=== PATIENT | female | born 1950 | race Caucasian/White ===

== ENCOUNTER 2022-09-22 11:04 | Outpatient (OUT) | payer MEDICARE, SELFPAY ==
[2022-09-25 14:37] LABS: Methylmalonic Acid, Serum 248 nmol/L (0-378)
== END 2022-09-22 11:05 ==
PROVIDERS: PCP Family Medicine; Visit Provider Psychiatry & Neurology Neurology
DX: R41.3 Other amnesia (principal)
CPT/HCPCS: 36415; 82607; 82746; 83921

== ENCOUNTER 2022-11-28 00:32 | Observation (INO) | payer MEDICARE, SELFPAY ==
[2022-11-28] VITALS (30 sets, daily range): BP systolic 130–174; BP diastolic 60–126; PULSE 64–96; RESP 9–28; TEMP 36.4–36.8; O2SAT 82–100; BMI 27.5; BMI 29.9
[2022-11-28 00:36] LABS: Glucometer 114 mg/dL (74-106)
--- NOTE | 2022-11-28 00:40 | CT_ITS ---
The [address] [address] Patient Name: YUDY MACARIO MRN: [id number] date: 1950 Sex: F Assigned Patient Location: ER Current Patient Location: ER Accession/Order Number: [id number] Exam Date: 11/28/2022 00:40 Report Date: 11/28/2022 00:59 At the request of: ELI STUART Procedure: CT stroke head/brain wo con NONCONTRAST CT SCAN OF THE HEAD HISTORY: Headache. TECHNIQUE: Multiple axial images are taken from the level the vertex down to the base of the skull without the use of IV contrast. Images were then reconstructed in the sagittal and coronal planes. This exam was performed according to our departmental dose-optimization program which includes use of Automated Exposure Control, adjustment of the mA and/or kV according to patient size and/or use of iterative reconstruction technique. COMPARISON: None. FINDINGS: Brain Parenchyma: There is global, diffuse atrophy with periventricular decreased white matter attenuation. No intracranial mass. No intracranial hemorrhage. Posterior fossa: Normal. Midline shift: None Extra-axial fluid collection: None Ventricles: Normal. Mastoid air cells: Normal. Sinuses: Normal. Cranium: No depressed skull fracture. Soft tissues: Normal. Orbits: Orbits demonstrate postoperative changes from prior cataract resection with prosthetic lens implant. CT/CT stroke head/brain wo con IMPRESSION: 1. Chronic small vessel ischemic change. 2. Otherwise, no CT evidence for acute pathology. 3. If patient continues to have symptoms or if there remains any further clinical concern, MRI may help better delineate. Electronically authenticated by: JAMIA MAE Date: 11/28/2022 00:59
--- NOTE | 2022-11-28 00:53 | ED_ITS ---
HPI - Head Injury General Chief complaint: Altered Mental Status Stated complaint: CONFUSION Time Seen by Provider: 11/28/22 00:37 History of Present Illness HPI Narrative: patient lives alone. 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 Fell yesterday afternoon. Was seen by Squad and cleared. Seen around 8pm by her son who thought she was doing ok. Recent workup by the memory doctor with concern for dementia. Son states she does struggle to walk because of her Polio. She was not able to get up to go to the bathroom tonight due to right foot and ankle pain. He was also concerned that she was more confused now at the later hour than when he seen her at 8pm and decided to have her brought in. She does have nausea. MD Complaint: Reports head injury Related Data Home Medications Medication Instructions Recorded Confirmed tramadol 50 mg tablet 50 mg PO DAILY 11/28/22 11/28/22 Allergies Allergy/AdvReac Type Severity Reaction Status Date / Time aspirin Allergy Severe Verified 11/28/22 01:11 butalbital [From Fiorinal] Allergy Mild Verified 11/28/22 01:11 caffeine [From Fiorinal] Allergy Mild Verified 11/28/22 01:11 chlorzoxazone Allergy Mild Verified 11/28/22 01:11 [From Parafon Forte] codeine Allergy Mild Verified 11/28/22 01:11 gabapentin [From Neurontin] Allergy Mild Verified 11/28/22 01:11 lisinopril Allergy Mild Verified 11/28/22 01:11 meperidine [From Demerol] Allergy Mild Verified 11/28/22 01:11 metoclopramide [From Reglan] Allergy Mild Verified 11/28/22 01:11 morphine Allergy Mild Hives Verified 11/28/22 01:11 moxifloxacin [From Avelox] Allergy Mild Verified 11/28/22 01:11 nalbuphine [From Nubain] Allergy Mild Verified 11/28/22 01:11 Penicillins Allergy Mild Verified 11/28/22 01:11 promethazine [From Phenergan] Allergy Mild Verified 11/28/22 01:11 salsalate [From Disalcid] Allergy Mild Verified 11/28/22 01:11 tapentadol [From Nucynta] Allergy Mild Verified 11/28/22 01:11 percadan Allergy Mild Uncoded 11/28/22 01:11 percocet Allergy Mild Uncoded 11/28/22 01:11 Review of Systems ROS Status of ROS unobtainable due to mental status Exam Constitutional Vital Signs, click to edit/add: Last Vital Signs Temp 98 F 11/28/22 01:00 Pulse 76 11/28/22 03:00 Resp 13 11/28/22 03:00 BP 147/75 H 11/28/22 02:30 Pulse Ox 93 L 11/28/22 03:00 O2 Del Method Room Air 11/28/22 01:00 Common normals: no apparent distress, average body habitus and alert HENMT Other: tenderness of occipital scalp but no obvious swelling Eye Common normals: EOMs intact bilaterally and conjunctivae normal Respiratory Common normals: normal respiratory effort, no retractions, no use of accessory muscles and clear to auscultation bilaterally Cardio Common normals: regular rate, regular rhythm, S1 normal heart sound and S2 normal heart sound GI Common normals: Normal to inspection, nondistended, normoactive bowel sounds present, soft to palpation and non-tender Extremity Other: edema bilat lower extremities increased swelling and tenderness of the right ankle Neuro Common normals: moves all extremities and no focal motor deficits Other: alert to person and place Psych Appearance: grossly normal Course Vital Signs Vital signs: Vital Signs Blood Pressure 174/126 H 11/28/22 00:33 Temperature 98 F 11/28/22 01:00 Pulse Rate 76 11/28/22 03:00 Respiratory Rate 13 11/28/22 03:00 Blood Pressure 147/75 H 11/28/22 02:30 Pulse Oximetry 93 L 11/28/22 03:00 Oxygen Delivery Method Room Air 11/28/22 01:00 MDM - Head Injury MDM Narrative Medical decision making narrative: patient fell yesterday striking her head. seen by Squad and released to stay home. Brought in tonight as her son felt she was confused and she was not able to walk due to ankle pain. Patient is awake and alert. She does have right ankle sweling and bilat chronic lower ext. edema. workup remarkable for no acute CT brain findings. ankle without fracture but does have swelling and clinically ankle sprain. UA is positive. Discussed with her son and he does not feel she can go home as she lives alone and he lives 1/2 hour away. Hospitalist paged for observation admission for UTI and ankle sprain-R Lab Data Labs: Lab Results 11/28/22 11/28/22 11/28/22 Range/Units 00:35 01:05 02:05 WBC 9.7 (4.0-11.0) 10^3/uL RBC 4.56 (4.20-5.40) 10^6/uL Hgb 13.8 (12.0-16.0) g/dL Hct 41.2 (36.0-48.0) % MCV 90.4 (81.0-99.0) fL MCH 30.3 (26.7-34.0) pg MCHC 33.5 (29.9-35.2) g/dL RDW 13.7 (11.0-15.0) % Plt Count 193 (150-450) 10^3/uL MPV 10.3 (9.5-13.5) fL Neut % (Auto) 77.4 H (43.0-75.0) % Lymph % (Auto) 14.2 L (20.5-60.0) % [place] % (Auto) 7.7 (1.7-12.0) % Eos % (Auto) 0.3 L (0.9-7.0) % Baso % (Auto) 0.2 (0.2-2.0) % Neut # (Auto) 7.5 H (1.4-6.5) 10^3/uL Lymph # (Auto) 1.4 (1.2-3.8) 10^3/uL [place] # (Auto) 0.8 (0.3-0.8) 10^3/uL Eos # (Auto) 0.0 (0.0-0.7) 10^3/uL Baso # (Auto) 0.0 (0.0-0.1) 10^3/uL Abs Immat Gran (auto) 0.02 (0.00-0.03) 10^3/uL Imm/Tot Granulo (auto) 0.2 (0.0-0.5) % Sodium 138 (136-145) mmol/L Potassium 3.7 (3.5-5.1) mmol/L Chloride 105 (98-107) mmol/L Carbon Dioxide 23.7 (21.0-32.0) mmol/L Anion Gap 13.0 BUN 27.0 H (7.0-18.0) mg/dL Creatinine 0.76 (0.55-1.02) mg/dL Est GFR ( Amer) >60 (>=60) Est GFR (Non-Af Amer) >60 (>=60) BUN/Creatinine Ratio 35.5 Glucose 119 H (74-106) mg/dL Calcium 9.1 (8.5-10.1) mg/dL Troponin I High Sens 8.0 (4.0-51.3) pg/mL Urine Color Yellow (YELLOW) Urine Clarity Clear (CLEAR) Urine pH 5.5 (5.0-9.0) Ur Specific [place] >=1.030 A (1.005-1.025) Urine Protein Trace (NEG/TRACE) mg/dL Urine Glucose (UA) Negative (NEGATIVE) mg/dL Urine Ketones 15 A (NEGATIVE) mg/dL Urine Occult Blood Small A (NEGATIVE) Urine Nitrite Positive A (NEGATIVE) Urine Bilirubin Negative (NEGATIVE) Urine Urobilinogen 0.2 (0.2-1.0) EU/dL Ur Leukocyte Esterase Small A (NEGATIVE) Urine RBC 2-5 A (0-2) #/HPF Urine WBC 10-20 A (NONE SEEN) #/HPF Ur Squamous Epith Cells Few A (NONE/RARE) #/LPF Urine Crystals None seen (None Seen) #/HPF Urine Bacteria Large A (NONE SEEN) #/HPF Urine Casts None seen (NONE SEEN) #/LPF Urine Mucus Moderate A (NONE SEEN) Ur Culture Indicated? Yes POC Glucose 114 H (74-106) mg/dL Discharge Plan Discharge Chief Complaint: Altered Mental Status Clinical Impression: Minor head injury, Acute UTI, Right ankle sprain Patient Disposition: Admitted as Observation
--- NOTE | 2022-11-28 00:59 | XR_ITS ---
The [address] [address] Patient Name: YUDY MACARIO MRN: [id number] date: 1950 Sex: F Assigned Patient Location: ED.MAIN Current Patient Location: ED.MAIN Accession/Order Number: [id number] Exam Date: 11/28/2022 00:25 Report Date: 11/28/2022 01:58 At the request of: ELI STUART Procedure: XR ankle RT min 3V XR ankle RT min 3V: HISTORY: injury injury COMPARISON: None available. TECHNIQUE: 3 right ankle views are submitted. FINDINGS: BONES/JOINT SPACES: The bones are severely osteopenic. Chronic deformity is present of in the talus secondary to degenerative changes. No definitive acute fracture is appreciated in the right ankle. SOFT TISSUES: There is severe diffuse soft tissue swelling. There are vascular calcifications noted along with phleboliths. XR/XR ankle RT min 3V IMPRESSION: Diffuse soft tissue swelling without a definitive acute fracture. Electronically authenticated by: RICHARD POWELL Date: 11/28/2022 01:58
--- NOTE | 2022-11-28 00:59 | XR_ITS ---
The [address] [address] Patient Name: YUDY MACARIO MRN: [id number] date: 1950 Sex: F Assigned Patient Location: ED.MAIN Current Patient Location: ER Accession/Order Number: [id number] Exam Date: 11/28/2022 00:25 Report Date: 11/28/2022 01:59 At the request of: ELI STUART Procedure: XR chest 1V EXAMINATION:XR chest 1V INDICATION:fall COMPARISON:06/18/2018 TECHNIQUE:A single frontal view of the chest is submitted. FINDINGS: The cardiomediastinal silhouette is not enlarged. The pulmonary vascularity is within normal limits. The lungs are clear based on chest radiography. There is no costophrenic angle blunting. XR/XR chest 1V IMPRESSION: Unremarkable plain film examination of the chest. Electronically authenticated by: RICHARD POWELL Date: 11/28/2022 01:59
--- NOTE | 2022-11-28 00:59 | ECG_ITS ---
The [facility] Test Date: 2022-11-28 Pat Name: YUDY MACARIO Department: Room: - Gender: Female Medical Health Researcher: : 1950 Requested By: [id number] Order Number: [id number] Reading MD: MAMIE PHELAN Measurements Intervals [place] Rate: 63 P: -[id number] NE: 68 QRS: -80 QRSD: 114 T: 53 QT: 424 QTc: 431 Interpretive Statements Baseline artifact 2630 Left anterior fascicular block 0102 ARTIFACT PRESENT 9150 abnormal ECG No previous ECG available for comparison Electronically Signed On 11-28-2022 7:05:50 EDT by MAMIE PHELAN
--- NOTE | 2022-11-28 00:59 | XR_ITS ---
The [address] [address] Patient Name: YUDY MACARIO MRN: [id number] date: 1950 Sex: F Assigned Patient Location: ED.MAIN Current Patient Location: ER Accession/Order Number: [id number] Exam Date: 11/28/2022 00:25 Report Date: 11/28/2022 02:01 At the request of: ELI STUART Procedure: XR foot RT min 3V XR foot RT min 3V: HISTORY: injury injury COMPARISON: None available. TECHNIQUE: 3 right foot views are submitted. FINDINGS: BONES/JOINT SPACES: The bones are severely osteopenic. This does contribute to some image degradation. There is a deformity of the distal aspect of the third proximal phalanx with smooth margination is which may be sequela to subacute fracture. A definitive acute fracture is not appreciated. There is fusion of the first interphalangeal joint. There is severe narrowing of the first metatarsophalangeal joint space. SOFT TISSUES: There is diffuse soft tissue swelling. XR/XR foot RT min 3V IMPRESSION: Deformity of the third proximal phalanx as described above may represent sequela to subacute healing fracture. No definitive acute fractures are appreciated. Electronically authenticated by: RICHARD POWELL Date: 11/28/2022 02:01
[2022-11-28 01:16] LABS: Basophils Percent Auto 0.2 % (0.2-2.0); Eosinophils Percent Auto 0.3 % (0.9-7.0); Hematocrit 41.2 % (36.0-48.0); Hemoglobin 13.8 g/dL (12.0-16.0); Immature Granulocytes Abs Auto 0.02 10^3/uL (0.00-0.03); Immature Granulocytes Pct Auto 0.2 % (0.0-0.5); Lymphocytes Absolute Auto 1.4 10^3/uL (1.2-3.8); Lymphocytes Percent Auto 14.2 % (20.5-60.0); Mean Corpuscular HGB Conc 33.5 g/dL (29.9-35.2); Mean Corpuscular Hemoglobin 30.3 pg (26.7-34.0); Mean Corpuscular Volume 90.4 fL (81.0-99.0); Mean Platelet Volume 10.3 fL (9.5-13.5); Monocytes Absolute Auto 0.8 10^3/uL (0.3-0.8); Monocytes Percent Auto 7.7 % (1.7-12.0); Neutrophils Absolute Auto 7.5 10^3/uL (1.4-6.5); Neutrophils Percent Auto 77.4 % (43.0-75.0); Platelet Count 193 10^3/uL (150-450); Red Blood Count 4.56 10^6/uL (4.20-5.40); Red Cell Distribution Width 13.7 % (11.0-15.0); White Blood Count 9.7 10^3/uL (4.0-11.0)
--- NOTE | 2022-11-28 01:27 | PC.NURSE ---
pt presents to ED because pt fell outside today at 3pm while walking into house and fell backwards. ems arrived and pt denied hitting head and was alert and oriented, and refused treatment. pt's last known well was 8pm. around 10pm pt became confused and had difficulty ambulating d/t right ankle/foot pain. pt lives alone. pt's friend called pt son and he called ems. when ems arrived pt was confused and states she feels off like something isn't right in her head pt still denies hitting her head or falling again this afternoon. pt c/o pain to the back of her head and grabbing at the back of her head. pt is not on blood thinners. pt right foot is swollen and bruised, painful to touch. ice pack applied. pt son at bedside and states pt has no hx of dementia and but that patient has been having issues with the patients memory lately.
[2022-11-28 01:29] LABS: BUN Creatinine Ratio 35.5; Calcium 9.1 mg/dL (8.5-10.1); Carbon Dioxide 23.7 mmol/L (21.0-32.0); Chloride 105 mmol/L (98-107); Estimated GFR (African America >60 (>=60); Estimated GFR (Non-African Ame >60 (>=60); Glucose 119 mg/dL (74-106); Potassium 3.7 mmol/L (3.5-5.1); Sodium 138 mmol/L (136-145)
[2022-11-28] MEDS: 0.9 % SODIUM CHLORIDE 1,000 ML 999 ML IV (01:35)
--- NOTE | 2022-11-28 01:37 | PC.NURSE ---
PT has hx of polio which affects pt's ability to ambulate so pt is at risk of falls. pt sent over to CT on arrival.
[2022-11-28 02:20] LABS: Bilirubin Urine NEGATIVE (NEGATIVE); Blood Urine SMALL (NEGATIVE); Clarity Urine CLEAR (CLEAR); Color Urine YELLOW (YELLOW); Glucose Urine UA NEGATIVE (NEGATIVE); Ketones Urine 15 mg/dL (NEGATIVE); Leukocyte Esterase Urine SMALL (NEGATIVE); Nitrite Urine POSITIVE (NEGATIVE); Protein Urine TRACE mg/dL (NEG/TRACE); Specific Gravity Urine >=1.030 (1.005-1.025); Urobilinogen Urine 0.2 EU/dL (0.2-1.0); pH Urine 5.5 (5.0-9.0)
[2022-11-28] MEDS: ONDANSETRON PF 4 MG/2 ML VIAL IV (02:20)
[2022-11-28 02:21] LABS: Urine Microscopic Indicated YES
[2022-11-28 02:32] LABS: Bacteria Urine LARGE #/HPF (NONE SEEN)
[2022-11-28 02:33] LABS: Cast Seen? NONE SEEN #/LPF (NONE SEEN); Crystals Seen? None Seen #/HPF (None Seen); Mucus Urine MODERATE (NONE SEEN); Squamous Epithelial Cell Urine FEW #/LPF (NONE/RARE); Urine Culture Indicated YES
[2022-11-28] MEDS: CEFTRIAXONE 1,000 MG in 0.9 % SODIUM CHLORIDE 50 ML 100 MG IV ×2 (03:13→22:08)
--- NOTE | 2022-11-28 11:43 | CM.NOTE ---
Rounds made with Dr. Prieto, awaiting for PT and OT evaluation for discharge planning.
--- NOTE | 2022-11-28 12:09 | CM.NOTE ---
Medicare Outpatient Observation Notice discussed with pt, pt verbalizes understanding and signs paper. Original given to pt and copy placed on pt's chart.
--- NOTE | 2022-11-28 12:12 | P.HP_ITS ---
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 Fell at home and c/o pain in right ankle. Very difficult to walk or stand. Son noticed increased confusion and to ER. WBC normal and UA showed UTI. X-ray right foot and ankle negative. Unable to ambulate and admitted. Continues to c/o pain in right ankle this am. Mild confusion but seems close to baseline. Afebrile. Review of Systems ROS Constitutional Denies: fever, chills or fatigue Cardiovascular Denies: chest pain, palpitations or edema Respiratory Denies: shortness of breath, cough or wheezing Gastrointestinal Denies: abdominal pain, nausea, vomiting or diarrhea Genitourinary Denies: painful urination [facility] Medical History (Updated 11/28/22 @ 09:29 by Terrance Prieto MD) Surgical History (Updated 11/28/22 @ 07:37 by Renetta León) Family History (Updated 11/28/22 @ 07:38 by Renetta León) Other Family history not known due to adoption Social History (Updated 11/28/22 @ 07:39 by Renetta León) Within the past year, how often did you have a drink containing alcohol: never Score interpretation: A score less than 3 is consistent with normal alcohol consumption. Smoking status: Former smoker Non-prescribed substance use: denies use Previous occupational history: retired Highest level of school completed/degree received: Associate degree: occupational, technical, vocational program Are you now , , , , never or living with a partner: Little interest or pleasure in doing things: not at all Feeling down, depressed, or hopeless: not at all Feel stressed/tense/nervous/anxious/difficulty sleeping: not at all Do you think of yourself as: straight/heterosexual Meds Home Medications and Allergies Home Medications Medication Instructions Recorded Confirmed Type tramadol 50 mg tablet 50 mg PO DAILY 11/28/22 11/28/22 History Allergies Allergy/AdvReac Type Severity Reaction Status Date / Time aspirin Allergy Severe Verified 11/28/22 01:11 butalbital [From Fiorinal] Allergy Mild Verified 11/28/22 01:11 caffeine [From Fiorinal] Allergy Mild Verified 11/28/22 01:11 chlorzoxazone Allergy Mild Verified 11/28/22 01:11 [From Parafon Forte] codeine Allergy Mild Verified 11/28/22 01:11 gabapentin [From Neurontin] Allergy Mild Verified 11/28/22 01:11 lisinopril Allergy Mild Verified 11/28/22 01:11 meperidine [From Demerol] Allergy Mild Verified 11/28/22 01:11 metoclopramide [From Reglan] Allergy Mild Verified 11/28/22 01:11 morphine Allergy Mild Hives Verified 11/28/22 01:11 moxifloxacin [From Avelox] Allergy Mild Verified 11/28/22 01:11 nalbuphine [From Nubain] Allergy Mild Verified 11/28/22 01:11 Penicillins Allergy Mild Verified 11/28/22 01:11 promethazine [From Phenergan] Allergy Mild Verified 11/28/22 01:11 salsalate [From Disalcid] Allergy Mild Verified 11/28/22 01:11 tapentadol [From Nucynta] Allergy Mild Verified 11/28/22 01:11 percadan Allergy Mild Uncoded 11/28/22 01:11 percocet Allergy Mild Uncoded 11/28/22 01:11 Exam Constitutional Vital Signs, click to edit/add: Last Vital Signs Temp 97.6 F 11/28/22 06:01 Pulse 71 11/28/22 06:01 Resp 20 11/28/22 06:01 BP 153/68 H 11/28/22 06:01 Pulse Ox 93 L 11/28/22 06:01 O2 Del Method Room Air 11/28/22 06:01 Documenting provider has reviewed patient's vital signs: yes Common normals: no apparent distress, oriented x3 and alert HENMT Common normals: normocephalic Eye Common normals: PERRL and EOMs intact bilaterally Respiratory Common normals: normal respiratory effort and clear to auscultation bilaterally Cardio Common normals: regular rate, regular rhythm, no gallops, no murmurs and no rub GI Common normals: Normal to inspection, nondistended, normoactive bowel sounds present and non-tender Extremity Right lower extremity: ankle joint (Moderate edema and pain around ankle) Results Labs Labs: Short CBC 11/28/22 Range/Units 01:05 WBC 9.7 (4.0-11.0) 10^3/uL Hgb 13.8 (12.0-16.0) g/dL Hct 41.2 (36.0-48.0) % Plt Count 193 (150-450) 10^3/uL BMP 11/28/22 01:05 Sodium 138 Potassium 3.7 Chloride 105 Carbon Dioxide 23.7 BUN 27.0 H Creatinine 0.76 Glucose 119 H Calcium 9.1 Urine 11/28/22 Range/Units 02:05 Urine Color Yellow (YELLOW) Urine Clarity Clear (CLEAR) Urine pH 5.5 (5.0-9.0) Ur Specific [place] >=1.030 A (1.005-1.025) Urine Protein Trace (NEG/TRACE) mg/dL Urine Glucose (UA) Negative (NEGATIVE) mg/dL Imaging x-ray ankle: Attestation: I have reviewed the pertinent imaging results. Assessment and Plan Assessment and Plan (1) Acute UTI: (2) Altered mental status: (3) Right ankle sprain: (4) Post-polio limb muscle weakness: Plan Continue rocephin for UTI and await urine culture. Start PT/OT for weakness and unsteady gait. Resume home medication. Use ultram PRN for pain. Consult social service agency director for discharge planning.
--- NOTE | 2022-11-28 13:32 | CM.NOTE ---
Dr. Prieto not discharging pt today. Explained this to pt and son. Provided them with cost of inpt skilled rehab. They wish to see how she does with PT in AM and make decision accordingly. At this time pt and son are thinking skilled rehab and will pay out of pocket for expense.
--- NOTE | 2022-11-28 13:37 | SWNOTE1 ---
SW spoke with case management in regards to discharge plans for pt. She does live at home alone and has polio. Pt's son lives a bit away. Rehab is recommended, but pt does not meet inpt criteria. Case management spoke with her son about this, he is willing to pay out of pocket. A list of facilities was provided to pt's son from medicare.gov with star ratings. Initially he wanted [facility], case management called and they do not have any openings. Pt's son decided on [facility]. SW called and spoke with admissions. They would need SW to send over referral and will review. SW sent referral.
--- NOTE | 2022-11-28 15:08 | SWNOTE1 ---
CHERRI spoke with Urbano from admissions at [facility] and she would need pt's secondary insurance card to see if pt has any benefits. SW spoke with son and made copy of her secondary insurance card. Pt's son is leaving for the day and will be back tomorrow to figure out discharge plan. Pt is not being discharged today. [facility] [place].
--- NOTE | 2022-11-28 15:22 | SWNOTE1 ---
SW sent referral to [facility] in [place] as well to get pricing for pt's son.
--- NOTE | 2022-11-28 15:31 | SWNOTE1 ---
[facility] Pt's secondary insurance will cover therapy 100% and she will get PT/OT 5 days a week 1xdaily. The cost pt would have is for room and board and that is $325 per day. She will have to pay for her meds out of pocket as well. Pt would have to pay 30 days up front, which would cost out to $9,750 and they would need check when admitted. If pt does not stay for 30 days, they will be re-imbursed. CHERRI to update pt's son tomorrow. CHERRI received call from Ike at [facility] and they will look over referral. She did let SW know about a program called rehab to home at [place], it would be $267 for 14 days and they would owe $3,738. CHERRI asked if this included therapy and Ike stated no they would have to run her secondary insurance, CHERRI let her know to run that and let SW know as pt needs therapy.
[2022-11-29 04:35] LABS: Basophils Percent Auto 0.4 % (0.2-2.0); Eosinophils Absolute Auto 0.1 10^3/uL (0.0-0.7); Eosinophils Percent Auto 1.9 % (0.9-7.0); Hematocrit 35.8 % (36.0-48.0); Hemoglobin 11.5 g/dL (12.0-16.0); Immature Granulocytes Abs Auto 0.01 10^3/uL (0.00-0.03); Immature Granulocytes Pct Auto 0.2 % (0.0-0.5); Lymphocytes Absolute Auto 1.9 10^3/uL (1.2-3.8); Lymphocytes Percent Auto 36.4 % (20.5-60.0); Mean Corpuscular HGB Conc 32.1 g/dL (29.9-35.2); Mean Corpuscular Hemoglobin 30.1 pg (26.7-34.0); Mean Corpuscular Volume 93.7 fL (81.0-99.0); Mean Platelet Volume 10.2 fL (9.5-13.5); Monocytes Absolute Auto 0.5 10^3/uL (0.3-0.8); Monocytes Percent Auto 9.1 % (1.7-12.0); Neutrophils Absolute Auto 2.7 10^3/uL (1.4-6.5); Platelet Count 164 10^3/uL (150-450); Red Blood Count 3.82 10^6/uL (4.20-5.40); Red Cell Distribution Width 13.9 % (11.0-15.0); White Blood Count 5.2 10^3/uL (4.0-11.0)
[2022-11-29 04:50] LABS: Anion Gap 10.1; BUN Creatinine Ratio 37.9; Calcium 8.3 mg/dL (8.5-10.1); Carbon Dioxide 26.5 mmol/L (21.0-32.0); Chloride 111 mmol/L (98-107); Estimated GFR (African America >60 (>=60); Estimated GFR (Non-African Ame >60 (>=60); Glucose 110 mg/dL (74-106); Potassium 3.6 mmol/L (3.5-5.1); Sodium 144 mmol/L (136-145)
[2022-11-29 05:11] VITALS: BP 147/83; PULSE 78; RESP 16; TEMP 36.8; O2SAT 93
[2022-11-29 07:44] VITALS: RESP 16
[2022-11-29] MEDS: BISACODYL 5 MG TABLET 10 MG PO (10:16)
--- NOTE | 2022-11-29 10:53 | CM.NOTE ---
Rounds made with Dr. Prieto, ok for pt to discharge today. Dr. Prieto explained again to son, that pt does not meet for 3 day inpt stay and out of pocket expense for skilled therapy. Son verbalizes understanding and will meet with [facility] regarding cost.
--- NOTE | 2022-11-29 11:28 | PT.DAILY ---
Physical Therapy Daily Note PT Daily Note/Assess Start: 11/29/22 11:24 Freq: Status: Active Protocol: Document 11/29/22 11:24 RAQUEL (Rec: 11/29/22 11:27 RAQUEL [id number]) Physical Therapy Daily Note/Assessment Time In/Time Out Time In 11:05 Time Out 11:20 Pain In Pain Level 5 Pain Out Pain Level 5 Subjective Subjective Pt medicated for pain prior to session. Rates pain in R ankle 5/10. Agrees to PT this morning. Son present. Therapeutic Activity Time Therapeutic Activity Minutes (minutes) 12 Therapeutic Activity Units 1 Therapeutic Activity Treatment Bed Mobility Ability Minimum Assist Chair Transfer Ability Maximum Assist Therapeutic Activity Comments Pt completes bed mobs with Shyanne to assist in advancing bilat LEs. Pt requires increased time to achieve this . Pt sits EOB unsupported without LOB. Pt performs sit> stand to RW with bed elevated and MaxA. Once standing pt able to maintain balance with Shyanne/CGA. Pt takes 10 small side steps to the right and pivots to BS chair while using RW. Pt remains in BS chair with feet elevated and call light in reach. Nursing notified of pt's transfer ability. Total Physical Therapy Time Total Therapy Minutes 12 Total Physical Therapy Units 1 Summary Daily Note Summary Improved transfer ability and gait tolerance today. Pain remains 5/10 post rx.
--- NOTE | 2022-11-29 11:32 | CM.NOTE ---
Pt and son have decided on [facility] for skilled therapy. SW will set up transport.
--- NOTE | 2022-11-29 11:48 | P.DS_ITS ---
DS: Providers Provider Date of admission: 11/28/22 04:46 Primary care physician: Deena You MD Consults: 11/28/22 09:26 Physical Therapy Eval and Treat Routine Reason for consultation: weakness 11/28/22 09:27 Occupational Therapy Eval and Treat Routine Reason for consultation: weakness DS: Diagnosis Discharge Diagnosis (1) Acute UTI: (2) Altered mental status: (3) Right ankle sprain: (4) Post-polio limb muscle weakness: DS: Summary Hospital Course Hospital Course: Reason for admission: See H&P for details. 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 Fell at home and c/o pain in right ankle. Very difficult to walk or stand. Son noticed increased confusion and to ER. WBC normal and UA showed UTI. X-ray right foot and ankle negative. Unable to ambulate and admitted. Hospital course: Started Rocephin for UTI. Started PT/OT for weakness and ankle injury. Patient had extreme difficulty with ambulation and therapy recommended SNF. Urine culture showed UTI due to K. pneumoniae. Pain tolerable with norco. Arranged for SNF and transferred in stable condition. Sensitivity pending and will discharge on oral cefdinir. Use norco PRN. Time Spent with Patient Time attestation: Total time spent providing and/or coordinating discharge services: Exam Constitutional Vital Signs, click to edit/add: Last Vital Signs Temp 98.2 F 11/29/22 05:11 Pulse 78 11/29/22 05:11 Resp 16 11/29/22 07:44 BP 147/83 H 11/29/22 05:11 Pulse Ox 93 L 11/29/22 05:11 O2 Del Method Room Air 11/29/22 05:11 Common normals: no apparent distress and alert HENMT Common normals: normocephalic Eye Common normals: PERRL and EOMs intact bilaterally Respiratory Common normals: normal respiratory effort and clear to auscultation bilaterally Cardio Common normals: regular rate, no gallops, no murmurs and no rub GI Common normals: Normal to inspection, nondistended, normoactive bowel sounds present and non-tender Extremity Right lower extremity: lower leg (Swelling right ankle) DS: Data Data Completed and Pending Labs on day of discharge: Labs from last 24 hours 11/29/22 04:17 WBC 5.2 RBC 3.82 L Hgb 11.5 L Hct 35.8 L MCV 93.7 MCH 30.1 MCHC 32.1 RDW 13.9 Plt Count 164 MPV 10.2 Neut % (Auto) 52.0 Lymph % (Auto) 36.4 [place] % (Auto) 9.1 Eos % (Auto) 1.9 Baso % (Auto) 0.4 Neut # (Auto) 2.7 Lymph # (Auto) 1.9 [place] # (Auto) 0.5 Eos # (Auto) 0.1 Baso # (Auto) 0.0 Abs Immat Gran (auto) 0.01 Imm/Tot Granulo (auto) 0.2 Sodium 144 Potassium 3.6 Chloride 111 H Carbon Dioxide 26.5 Anion Gap 10.1 BUN 22.0 H Creatinine 0.58 Est GFR ( Amer) >60 Est GFR (Non-Af Amer) >60 BUN/Creatinine Ratio 37.9 Glucose 110 H Calcium 8.3 L Preliminary micro results at discharge 11/28/22 02:05 Urine Culture - Preliminary Urine,Clean Catch Klebsiella pneumoniae Discharge Plan Discharge Disposition: Xfer SNF Discharge Medications: New hydrocodone-acetaminophen 5-325 mg Tablet 1 tab PO QID PRN (Reason: Pain) 5 Days Qty: 20 0RF ondansetron 4 mg Tablet,Disintegrating 4 mg PO Q4H PRN (Reason: Nausea And Vomiting) Qty: 1 0RF cefdinir 300 mg capsule 300 mg PO BID 10 Days Qty: 20 0RF Discontinued tramadol 50 mg tablet 50 mg PO DAILY Forms: Portal Instructions
--- NOTE | 2022-11-29 11:48 | SWNOTE1 ---
CHERRI gave pricing to pt's son for [facility] and [facility], CHERRI advised pt's son to go talk with Ike at [facility] to confirm pricing. Pt's son went to visit [facility] and spoke with Ike and he would like to move forward with [facility] at [facility]. CHERRI set up trips for 12:30-1:00, SW notified [facility], pt's son, and nursing.
--- NOTE | 2022-11-29 12:08 | SWNOTE1 ---
SW updated packet and sent over dc paperwork. SW completed HENS online.
== END 2022-11-29 12:48 ==
LOC: ER 03:00 → MS 05:14
PROVIDERS: Admitting Provider Family Medicine; Emergency Provider Internal Medicine; PCP Family Medicine; Visit Provider Family Medicine
DX: N39.0 Urinary tract infection, site not specified (principal); R41.82 Altered mental status, unspecified; S93.401A Sprain of unspecified ligament of right ankle, initial encounter; M62.81 Muscle weakness (generalized); B96.1 Klebsiella pneumoniae [K. pneumoniae] as the cause of diseases classified elsewhere; Z86.12 Personal history of poliomyelitis; W19.XXXA Unspecified fall, initial encounter; S09.90XA Unspecified injury of head, initial encounter; Z87.891 Personal history of nicotine dependence; Z79.899 Other long term (current) drug therapy
CPT/HCPCS: 36415; 70450; 71045; 73610; 73630; 80048; 81001; 84484; 85025; 87086; 87150; 87186; 93005; 96361; 96365; 96366; 96375; 97162; 97165; 97530; 99285; G0378